=== PATIENT | male | born 1940 | race Caucasian/White ===

== ENCOUNTER 2017-04-14 13:46 | Emergency (ER) | payer MEDICARE, OTHER ==
[~2017-04-14] VITALS: Ht 185.4 cm; Wt 79.4 kg
[2017-04-14 14:04] VITALS: BP 134/87
[2017-04-14 14:50] LABS: BASOPHILS % (AUTO) 0.4 % (0.0-2.0); EOSINOPHILS # (AUTO) 0.1 /CMM (0.0-0.7); EOSINOPHILS % (AUTO) 1.1 % (0.0-6.0); HEMATOCRIT 41 % (39-51); HEMOGLOBIN 12.9 g/dL (13.5-17.5); LYMPHOCYTES # (AUTO) 2.1 /CMM (0.8-4.8); LYMPHOCYTES % (AUTO) 22.1 % (20.0-44.0); MEAN CORPUSCULAR HEMOGLOBIN 31 PG (26.0-33.0); MEAN CORPUSCULAR HGB CONC 32 g/dl (31.0-36.0); MEAN CORPUSCULAR VOLUME 97 fL (80-96); MONOCYTES % (AUTO) 10.6 % (2.0-12.0); NEUTROPHILS # (AUTO) 6.1 /CMM (1.8-8.9); NEUTROPHILS % (AUTO) 65.8 % (43.0-81.0); PLATELET COUNT (AUTO) 118 /CMM (150-450); RDW COEFFICIENT OF VARIATION 12.8 (11.5-15.0); RED BLOOD CELL COUNT(AUTO) 4.18 MIL/uL (4.5-6.0); WHITE BLOOD COUNT (AUTO) 9.3 K/uL (4.3-11.0)
[2017-04-14] MEDS ORDERED: ALBUTEROL FS 2.5 MG/3 ML VIAL.NEB ONE (14:59)
[2017-04-14] MEDS ORDERED: ALBUTEROL FS 2.5 MG/3 ML VIAL.NEB NEB ONE (15:00)
[2017-04-14 15:01] LABS: CALCIUM, SERUM 9.6 mg/dL (8.5-10.1); CARBON DIOXIDE 32 mmol/L (21-32); CHLORIDE 102 mmol/L (98-107); CREATININE 1.2 mg/dL (0.6-1.3); GLUCOSE 107 mg/dL (74-106); POTASSIUM 4.9 mmol/L (3.5-5.1); SODIUM SERUM 138 mmol/L (136-145); UREA NITROGEN, BLOOD 26 mg/dL (7-18)
[2017-04-14] MEDS ORDERED: DEXAMETHASONE SOD PHOSPHATE 10 MG/ML VIAL ONE (15:42)
[2017-04-14] MEDS ORDERED: DEXAMETHASONE SOD PHOSPHATE 10 MG/ML VIAL IV ONE (16:00)
== END 2017-04-14 15:58 | disposition home or self-care (01) ==
LOC: ER 13:48
DX: J40 Bronchitis, not specified as acute or chronic (principal); I10 Essential (primary) hypertension
CPT/HCPCS: 36415; 71010; 80048; 85025; 87804 ×2; 94640 ×2; 99285; A4606; J1100; 87400; Z7610

== ENCOUNTER 2018-05-01 22:12 | Emergency (ER) | payer MEDICARE, OTHER ==
[~2018-05-01] VITALS: Ht 180.3 cm; Wt 80.3 kg
[~2018-05-01 22:12] MED LIST: ALPR0.5T PO; APIX5TAB PO; ASPI-1169 PO; CARV6.252 PO; DARU1TAB PO; LISI10TA5 PO; MULT-659 PO; OMEG1CAP18 PO; PRAV40TA PO; RITO100T PO; TEMA15CA PO; VITA1TAB20 PO; [UNRECOGNIZED DRUG - CODE] PO
[2018-05-01] MEDS ORDERED: IV NS 0.9% 1,000 ML BAG IV ONE (23:00)
[2018-05-01] MEDS ORDERED: ONDANSETRON HCL/PF 4 MG/2 ML VIAL IVP ONE (23:00)
[2018-05-01] MEDS ORDERED: PANTOPRAZOLE 40 MG VIAL IV ONE (23:00)
--- NOTE | 2018-05-01 23:00 | NUR ---
pt bib family member, c/o nausea vomiting all day, feeling weak. pt is awake alert x 4. pt is still complaining of nausea. pt said he was recently started on eliquis for abnormal heart rhythm, pt complained of small amount of blood in vomit. pt abdomen is more distended than normal. breathing even non labored.
--- NOTE | 2018-05-01 23:15 | NUR ---
R AC 20g IV started, intact patent
[2018-05-01] MEDS ORDERED: ONDANSETRON HCL/PF 4 MG/2 ML VIAL ONE (23:25)
[2018-05-01] MEDS ORDERED: PANTOPRAZOLE 40 MG VIAL ONE (23:31)
--- NOTE | 2018-05-01 23:37 | NUR ---
pt going to ct scan now, vss awake alert x 4
[2018-05-01 23:49] LABS: BASOPHILS % (AUTO) 0.2 % (0.0-2.0); EOSINOPHILS % (AUTO) 0.7 % (0.0-6.0); HEMATOCRIT 47 % (39-51); HEMOGLOBIN 15.5 g/dL (13.5-17.5); LYMPHOCYTES # (AUTO) 0.8 /CMM (0.8-4.8); LYMPHOCYTES % (AUTO) 9.2 % (20.0-44.0); MEAN CORPUSCULAR HGB CONC 33 g/dl (31.0-36.0); MEAN CORPUSCULAR VOLUME 100 fL (80-96); MONOCYTES # (AUTO) 0.6 /CMM (0.1-1.30); MONOCYTES % (AUTO) 6.8 % (2.0-12.0); NEUTROPHILS # (AUTO) 7.7 /CMM (1.8-8.9); NEUTROPHILS % (AUTO) 83.1 % (43.0-81.0); PLATELET COUNT (AUTO) 145 /CMM (150-450); RED BLOOD CELL COUNT(AUTO) 4.68 MIL/uL (4.5-6.0); WHITE BLOOD COUNT (AUTO) 9.2 K/uL (4.3-11.0)
[2018-05-01 23:58] LABS: CALCIUM, SERUM 9.6 mg/dL (8.5-10.1); CARBON DIOXIDE 28 mmol/L (21-32); CHLORIDE 105 mmol/L (98-107); CREATININE 1.3 mg/dL (0.6-1.3); GLUCOSE 117 mg/dL (74-106); POTASSIUM 4.6 mmol/L (3.5-5.1); SODIUM SERUM 141 mmol/L (136-145); UREA NITROGEN, BLOOD 27 mg/dL (7-18)
[2018-05-02 00:04] LABS: ALANINE AMINOTRANSFERASE 34 U/L (12-78); ALBUMIN 3.8 g/dL (3.4-5.0); ALKALINE PHOSPHATASE 60 U/L (46-116); ASPARTATE AMINOTRANSFERASE 23 U/L (15-37); BILIRUBIN,DIRECT 0.1 mg/dL (0.0-0.2); BILIRUBIN,TOTAL 0.4 mg/dL (0.2-1.0); LIPASE 236 U/L (73-393); TOTAL PROTEIN, SERUM 7.8 g/dL (6.4-8.2)
[2018-05-02 01:32] VITALS: BP 120/68
== END 2018-05-02 01:35 | disposition home or self-care (01) ==
LOC: ER 22:17
DX: R11.2 Nausea with vomiting, unspecified (principal); B34.9 Viral infection, unspecified; I10 Essential (primary) hypertension; G51.0 Bell's palsy; I48.91 Unspecified atrial fibrillation; Z85.828 Personal history of other malignant neoplasm of skin; Z98.890 Other specified postprocedural states; Z88.9 Allergy status to unspecified drugs, medicaments and biological substances; Z60.2 Problems related to living alone; Z79.82 Long term (current) use of aspirin
CPT/HCPCS: 36415; 71045-TC; 80048-TC; 80076-TC; 83690-TC; 84484-TC; 85025-TC; A4606; C9113; J2405; J7030; Z7610

== ENCOUNTER 2018-11-22 17:43 | Emergency (ER) | payer MEDICARE, BC, OTHER ==
[~2018-11-22] VITALS: Ht 182.9 cm; Wt 86.2 kg
[2018-11-22 18:04] VITALS: BP 138/89
== END 2018-11-22 18:29 | disposition home or self-care (01) ==
LOC: ER 17:52
DX: I10 Essential (primary) hypertension (principal); G51.0 Bell's palsy; Z85.828 Personal history of other malignant neoplasm of skin; Z98.890 Other specified postprocedural states; Z60.2 Problems related to living alone; Z79.82 Long term (current) use of aspirin; Z88.8 Allergy status to other drugs, medicaments and biological substances

== ENCOUNTER 2018-11-23 15:45 | Emergency (ER) | payer MEDICARE, BC, OTHER ==
[~2018-11-23] VITALS: Ht 182.9 cm; Wt 85.7 kg
--- NOTE | 2018-11-23 16:00 | NUR ---
C/O HEADACHE AND DIZZINESS X 2 HOURS. SEEN YESTERDAY FOR HIGH B/P. PATIENT A/OX4, BREATHING EVEN AND UNLABORED, NO SOB NOTED, ATTACHED TO THE FRUIT HARVESTER.
[2018-11-23 16:23] LABS: BASOPHILS % (AUTO) 0.4 % (0.0-2.0); EOSINOPHILS % (AUTO) 0.8 % (0.0-6.0); HEMATOCRIT 45 % (39-51); HEMOGLOBIN 15.2 g/dL (13.5-17.5); LYMPHOCYTES # (AUTO) 3.2 /CMM (0.8-4.8); LYMPHOCYTES % (AUTO) 43.8 % (20.0-44.0); MEAN CORPUSCULAR HGB CONC 33 g/dl (31.0-36.0); MEAN CORPUSCULAR VOLUME 97 fL (80-96); MONOCYTES # (AUTO) 0.6 /CMM (0.1-1.30); MONOCYTES % (AUTO) 8.6 % (2.0-12.0); NEUTROPHILS # (AUTO) 3.4 /CMM (1.8-8.9); NEUTROPHILS % (AUTO) 46.4 % (43.0-81.0); PLATELET COUNT (AUTO) 154 /CMM (150-450); RED BLOOD CELL COUNT(AUTO) 4.69 MIL/uL (4.5-6.0); WHITE BLOOD COUNT (AUTO) 7.3 K/uL (4.3-11.0)
[2018-11-23] MEDS ORDERED: diphenhydrAMINE HCL 50 MG/ML VIAL IV ONE (16:30)
[2018-11-23] MEDS ORDERED: ONDANSETRON HCL/PF 4 MG/2 ML VIAL IVP ONE (16:30)
[2018-11-23] MEDS ORDERED: IV NS 0.9% 1,000 ML BAG IV ONE (16:30)
[2018-11-23 16:31] LABS: CALCIUM, SERUM 9.7 mg/dL (8.5-10.1); CARBON DIOXIDE 29 mmol/L (21-32); CHLORIDE 105 mmol/L (98-107); CREATININE 1.2 mg/dL (0.6-1.3); GLUCOSE 93 mg/dL (74-106); POTASSIUM 4.3 mmol/L (3.5-5.1); SODIUM SERUM 140 mmol/L (136-145); UREA NITROGEN, BLOOD 18 mg/dL (7-18)
[2018-11-23] MEDS ORDERED: diphenhydrAMINE HCL 50 MG/ML VIAL ONE (16:31)
[2018-11-23] MEDS ORDERED: ONDANSETRON HCL/PF 4 MG/2 ML VIAL ONE (16:32)
[2018-11-23 16:37] LABS: ALANINE AMINOTRANSFERASE 42 U/L (12-78); ALBUMIN 3.6 g/dL (3.4-5.0); ALKALINE PHOSPHATASE 53 U/L (46-116); ASPARTATE AMINOTRANSFERASE 29 U/L (15-37); BILIRUBIN,DIRECT 0.1 mg/dL (0.0-0.2); BILIRUBIN,TOTAL 0.4 mg/dL (0.2-1.0); TOTAL PROTEIN, SERUM 7.3 g/dL (6.4-8.2)
--- NOTE | 2018-11-23 17:39 | NUR ---
BP IMPROVED, PATIENT A/OX4, BREATHING EVEN AND UNLABORED, NO SOB NOTED, PIV REMOVED, Patient discharged to home in stable condition. Written and verbal after care instructions given. Patient verbalizes understanding of instruction.
[2018-11-23 17:41] VITALS: BP 138/95
== END 2018-11-23 17:42 | disposition home or self-care (01) ==
LOC: ER 15:50
DX: I10 Essential (primary) hypertension (principal); R42 Dizziness and giddiness; R51 Headache; R00.1 Bradycardia, unspecified; R41.82 Altered mental status, unspecified; G51.0 Bell's palsy; Z85.828 Personal history of other malignant neoplasm of skin; Z98.890 Other specified postprocedural states; Z60.2 Problems related to living alone; Z79.82 Long term (current) use of aspirin; Z88.8 Allergy status to other drugs, medicaments and biological substances
CPT/HCPCS: 36415; 70450; 71045; 80048; 80076; 82962; 84484; 85025; 93005; 96361; 96374; 96375; 99284; J1200; J2405; J7030

== ENCOUNTER 2019-02-26 22:06 | Inpatient (IN) | payer MEDICARE, BC, OTHER ==
[~2019-02-26] VITALS: Ht 182.9 cm; Wt 83.9 kg
--- NOTE | 2019-02-26 22:25 | NUR ---
BIB FRIEN C/O BILATERAL RIBCAGE SHOOTING SHARP PAIN X2 EPISODE TODAY WITH SOB AND DIZZINES, PT PAIN FREE NOW. IN BED BEING SEEN BY
[2019-02-26 22:59] LABS: BASOPHILS % (AUTO) 0.3 % (0.0-2.0); EOSINOPHILS % (AUTO) 1.7 % (0.0-6.0); HEMATOCRIT 47 % (39-51); HEMOGLOBIN 16.4 g/dL (13.5-17.5); LYMPHOCYTES # (AUTO) 2.5 /CMM (0.8-4.8); LYMPHOCYTES % (AUTO) 36.9 % (20.0-44.0); MEAN CORPUSCULAR HGB CONC 35 g/dl (31.0-36.0); MEAN CORPUSCULAR VOLUME 96 fL (80-96); MONOCYTES # (AUTO) 0.7 /CMM (0.1-1.30); NEUTROPHILS # (AUTO) 3.5 /CMM (1.8-8.9); NEUTROPHILS % (AUTO) 51.1 % (43.0-81.0); PLATELET COUNT (AUTO) 136 /CMM (150-450); WHITE BLOOD COUNT (AUTO) 6.8 K/uL (4.3-11.0)
[2019-02-26] MEDS ORDERED: IV NS 0.9% 500 ML BAG IV ONE (23:00)
[2019-02-26 23:26] LABS: CALCIUM, SERUM 9.8 mg/dL (8.5-10.1); CARBON DIOXIDE 26 mmol/L (21-32); CHLORIDE 100 mmol/L (98-107); CREATININE 1.5 mg/dL (0.6-1.3); GLUCOSE 151 mg/dL (74-106); POTASSIUM 3.8 mmol/L (3.5-5.1); SODIUM SERUM 137 mmol/L (136-145); UREA NITROGEN, BLOOD 28 mg/dL (7-18)
--- NOTE | 2019-02-26 23:31 | NUR ---
CALLED ELECTROPLATING TECHNICIAN FOR TELE BED
--- NOTE | 2019-02-26 23:32 | NUR ---
X.RAY TECH AT THE BED SIDE
--- NOTE | 2019-02-26 23:35 | NUR ---
Rogelio molina in [facility] - 02/26/19 at 2336 by [facility] ETA [id number]. AUTH # [id number]
--- NOTE | 2019-02-26 23:37 | NUR ---
BED 311-1
[2019-02-26 23:38] LABS: ALANINE AMINOTRANSFERASE 28 U/L (12-78); ALBUMIN 3.8 g/dL (3.4-5.0); ALKALINE PHOSPHATASE 57 U/L (46-116); ASPARTATE AMINOTRANSFERASE 26 U/L (15-37); B-TYPE NATRIURETIC PEPTIDE 41 PG/ML (0-125); BILIRUBIN,DIRECT 0.2 mg/dL (0.0-0.2); BILIRUBIN,TOTAL 0.4 mg/dL (0.2-1.0); TOTAL PROTEIN, SERUM 7.8 g/dL (6.4-8.2)
[2019-02-27] VITALS (8 sets, daily range): BP systolic 101–139; BP diastolic 68–81
--- NOTE | 2019-02-27 00:02 | NUR ---
REPORT GIVEN TO SERENE CAMPBELL
[2019-02-27] MEDS ORDERED: MAGNESIUM HYDROXIDE 30 ML UDC PO PRN (00:30)
[2019-02-27] MEDS ORDERED: Z GUARD REMEDY 2 OZ OINT TP PRN (00:30)
[2019-02-27] MEDS ORDERED: MAG HYDROX/AL HYDROX/SIMETH 30 ML UDC PO PRN (00:30)
[2019-02-27] MEDS ORDERED: TEMAZEPAM 7.5 MG CAPSULE PO PRN (00:30)
[2019-02-27] MEDS ORDERED: HYDROCODONE/APAP 5/325MG 1 EACH TABLET PO PRN (00:30)
[2019-02-27] MEDS ORDERED: ALPRAZOLAM 0.5 MG TABLET PO PRN (00:30)
[2019-02-27] MEDS ORDERED: ACETAMINOPHEN 325 MG TABLET PO PRN (00:30)
[2019-02-27] MEDS ORDERED: ZOLPIDEM TARTRATE 5 MG TABLET PO PRN (00:30)
[2019-02-27] MEDS ORDERED: ONDANSETRON HCL/PF 4 MG/2 ML VIAL IVP PRN (00:30)
--- NOTE | 2019-02-27 00:36 | NUR ---
PT TAEN TO CT
--- NOTE | 2019-02-27 00:46 | NUR ---
BACK FROM CT
--- NOTE | 2019-02-27 00:50 | NUR ---
FINISH PHOTOGRAPHERMEDICAL INTERPRETER NOTES Received patient from ER via [facility] [place] accompanied by 2 ER staff. Admitted to telemetry 311-1 due to syncope under the service of Dr. Moshe Lazo. Assisted to bed comfortably, unsteady gait noted. ambulates with assistance, patient claimed he is feeling dizzy. Admission routine done, belongings inventory completed by the assigned CLOTH FINISHING RANGE OPERATOR CHIEF. On tele monitor with Sinus radha noted, patient claimed no other symptoms noted. Instructed patient to report any unusualities noted, patient verbalized understanding. Patient refused skin assessment, preferred to keep on his pants while using hospital gown. Patient claimed he has no skin issues at this time. On cardiac diet, provided water at bedside. Offered available snacks, patient preferred food from the outside, provided by his friend. Kept on bed clean, dry and comfortable. Will continue to monitor.
--- NOTE | 2019-02-27 00:54 | NUR ---
TRANSPORTED TO [facility] VIA [facility]
[2019-02-27] MEDS ORDERED: ZOLPIDEM TARTRATE 10 MG TABLET PO PRN (01:00)
[2019-02-27] MEDS: IV NS 0.9% 1,000 ML IV PRN ×2 (01:00→16:09)
--- NOTE | 2019-02-27 06:17 | NUR ---
BUSINESS PERFORMANCE SPECIALIST CLOSING NOTES Patient asleep, easily awaken. On RA, no SOB/respiratory distress noted at this time. On tele monitor with Sinus Rhythm noted. All nursing needs attended, due meds given as ordered. No new complaints made. Kept on bed clean, dry and comfortable. Call light within easy reach. Endorsed to the next shift.
--- NOTE | 2019-02-27 07:30 | NUR ---
ADMINISTRATOR PESTICIDE OPENING NOTES RECEIVED PT LAYING IN BED WITH HOB ELEVATED. PT IS A/O X4, AFEBRILE. RESPIRATIONS ARE EVEN AND UNLABORED, NOT IN ANY ACUTE DISTRESS NOTED. PT DENIES ANY PAIN, SOB, N/V AT THIS TIME. IV SITE TO RAC G18 INTACT, NO INFILTRATION NOTED. IV FLUIDS RUNNING AT 75ML/HR, TOLERATING WELL. DRESSING KEPT CLEAN AND DRY. SAFETY MEASURES ARE IN PLACE. INSTRUCTED PT TO USE CALL LIGHT WHEN ASSISTANCE IS NEEDED, CALL LIGHT IS LEFT WITHIN REACH. WILL MONITOR THROUGHOUT SHIFT FOR CONTINUITY OF CARE.
--- NOTE | 2019-02-27 07:50 | NUR ---
PET CARETAKER NOTES-- PT SEEN AND EXAMINED BY DR. VELAZQUEZ.
[2019-02-27] MEDS: ASPIRIN 81 MG TAB.CHEW PO SCH (08:06)
[2019-02-27] MEDS: APIXABAN 5 MG TABLET PO SCH ×2 (08:07→16:09)
[2019-02-27 08:11] LABS: THYROID STIMULATING HORMONE 4.299 uIU/mL (0.358-3.74)
--- NOTE | 2019-02-27 10:30 | NUR ---
FIRER RETORT NOTES-- PT SEEN AND EXAMINED BY DR. HOFFMANN.
--- NOTE | 2019-02-27 16:10 | NUR ---
SPOOL HAULER NOTES-- PT'S PARTNER/FRIEND CAME IN AND BROUGHT PT'S MEDICATIONS FROM HOME AND PT TOOK ALL MEDICATIONS INCLUDING ELIQUIS WITHOUT NOTIFYING NURSE. THEREFORE, ELIQUIS SCHEDULED AT 1700 WAS NOT GIVEN D/T PT ALREADY TAKING OWN MEDICATION. DR. GOULD MADE OF AWARE AND WILL REVIEW MED REC.
--- NOTE | 2019-02-27 18:48 | NUR ---
OPERATING ROOM REGISTERED NURSE CLOSING NOTES ALL DUE MEDS GIVEN, NEEDS MET AND RENDERED. PT IS A/O X4, AFEBRILE. RESPIRATIONS ARE EVEN AND UNLABORED, NOT IN ANY ACUTE DISTRESS NOTED. PT DENIES ANY PAIN AT THIS TIME, NO C/O SOB, N/V. IV SITE TO RAC INTACT, NO INFILTRATION NOTED. DRESSING KEPT CLEAN AND DRY. SAFETY MEASURES ARE IN PLACE. REMINDED PT TO USE CALL LIGHT WHEN ASSISTANCE IS NEEDED, CALL LIGHT IS LEFT WITHIN REACH. WILL ENDORSE TO NEXT SHIFT FOR CONTINUITY OF CARE.
--- NOTE | 2019-02-27 20:00 | NUR ---
STAFFING ACCOUNT MANAGER NOTES RECEIVED PATIENT AWAKE IN BED WITH NO DISTRESS NOTED. CALL LIGHT WITHIN REACH. PERIPHERAL LINE INTACT AND PATENT. NO C/O PAIN OR DISCOMFORT. ENCOURAGED USE OF CALL LIGHT FOR ASSISTANCE AND VERBALIZED GOOD UNDERSTANDING. BED IN LOW LOCK SETTING. ROOM FREE OF CLUTTER AND BELONGINGS KEPT NEAR BEDSIDE. WILL CONTINUE TO MONITOR.
[2019-02-27] MEDS ORDERED: ATORVASTATIN 10 MG TABLET PO SCH (22:00)
[2019-02-27] MEDS ORDERED: PRAVASTATIN SODIUM 20 MG TABLET PO SCH (22:00)
[2019-02-28] VITALS: BP 127/51
[2019-02-28 04:08] VITALS: BP 127/57
[2019-02-28 05:54] VITALS: BP_SYST 135; BP_SYST 138; BP_SYST 139; BP_DIAS 76; BP_DIAS 83; BP_DIAS 84
[2019-02-28] MEDS: IV NS 0.9% 1,000 ML IV PRN (06:07)
--- NOTE | 2019-02-28 06:36 | NUR ---
BANBURY MIXER OPERATOR NOTES PATIENT AWAKE IN BED WITH NO DISTRESS NOTED. CALL LIGHT WITHIN REACH. ALL DUE MEDS GIVEN ORDERED WITH NO ASE NOTED. NO C/O PAIN OR DISCOMFORT. PERIPHERAL LINE INTACT AND PATENT. ALL BELONGINGS KEPT NEAR BEDSIDE. BED IN LOW LOCK SETTING. WILL ENDORSE TO ONCOMING SHIFT.
[2019-02-28 06:47] LABS: CALCIUM, SERUM 9.1 mg/dL (8.5-10.1); CREATININE 1.3 mg/dL (0.6-1.3); MAGNESIUM 1.8 mg/dL (1.8-2.4); PHOSPHORUS 3.3 mg/dL (2.5-4.9); POTASSIUM 4.5 mmol/L (3.5-5.1)
[2019-02-28 06:48] LABS: BASOPHILS % (AUTO) 0.5 % (0.0-2.0); HEMATOCRIT 43 % (39-51); HEMOGLOBIN 14.7 g/dL (13.5-17.5); LYMPHOCYTES # (AUTO) 3.6 /CMM (0.8-4.8); LYMPHOCYTES % (AUTO) 51.6 % (20.0-44.0); MEAN CORPUSCULAR HGB CONC 34 g/dl (31.0-36.0); MEAN CORPUSCULAR VOLUME 97 fL (80-96); MONOCYTES # (AUTO) 0.7 /CMM (0.1-1.30); MONOCYTES % (AUTO) 10.4 % (2.0-12.0); NEUTROPHILS # (AUTO) 2.4 /CMM (1.8-8.9); NEUTROPHILS % (AUTO) 35.5 % (43.0-81.0); PLATELET COUNT (AUTO) 121 /CMM (150-450); RED BLOOD CELL COUNT(AUTO) 4.47 MIL/uL (4.5-6.0); WHITE BLOOD COUNT (AUTO) 6.9 K/uL (4.3-11.0)
[2019-02-28 06:50] LABS: THYROID STIMULATING HORMONE 5.417 uIU/mL (0.358-3.74)
[2019-02-28 08:00] VITALS: BP 144/91
--- NOTE | 2019-02-28 08:00 | NUR ---
MS RN RECEIVE DON BED, AWAKE ,ALERT,ORIENTED X4, NOT IN ANY FORM OF DISTRESS, RESPIRATIONS EVEN AND UNLABORED,NO SOB NOTED, LUNGS ARE CLEAR,ABDOMEN SOFT,POSITIVE BOWEL SOUNDS, DENIES PAIN AT THIS TIME.WILL MONITOR PATIENT'S CONDITION.
--- NOTE | 2019-02-28 09:30 | NUR ---
MS CAMPBELL BREAKFAST SERVED,DUE MEDS GIVEN,TOLERATED WELL.
[2019-02-28] MEDS: ASPIRIN 81 MG TAB.CHEW PO SCH (10:25)
[2019-02-28] MEDS: APIXABAN 5 MG TABLET PO SCH (10:32)
--- NOTE | 2019-02-28 12:41 | NUR ---
MS RN PATIENT READY FOR DISCHARGE HOME, DISCHARGE INSTRUCTIONS GIVEN AND UNDERSTOOD,ALL NEEDS ATTENDED.
== END 2019-02-28 13:00 | disposition home or self-care (01) | DRG 73 ==
LOC: ER 22:12 → TELE 23:50 → MED 02-28 11:39
PROVIDERS: ADMIT Internal Medicine; ATTEND Internal Medicine
DX: G90.8 Other disorders of autonomic nervous system (principal); N17.0 Acute kidney failure with tubular necrosis; D68.59 Other primary thrombophilia; J98.11 Atelectasis; I13.10 Hypertensive heart and chronic kidney disease without heart failure, with stage 1 through stage 4 chronic kidney disease, or unspecified chronic kidney disease; N18.9 Chronic kidney disease, unspecified; K21.9 Gastro-esophageal reflux disease without esophagitis; E78.5 Hyperlipidemia, unspecified; E86.9 Volume depletion, unspecified; G51.0 Bell's palsy; Z85.828 Personal history of other malignant neoplasm of skin; Z88.8 Allergy status to other drugs, medicaments and biological substances; Z79.82 Long term (current) use of aspirin; Z79.899 Other long term (current) drug therapy; I48.0 Paroxysmal atrial fibrillation; Z87.891 Personal history of nicotine dependence; Z79.01 Long term (current) use of anticoagulants
CPT/HCPCS: 36415; 70450-TC; 71045-TC; 80048-TC; 80061-TC; 80076-TC; 83735-TC; 83880; 84100-TC; 84439-TC; 84443-TC; 84484-TC; 85025-TC; 85730-TC; 87081-TC; 93307-TC; 93880-TC; 97116-TC; 97530-TC; G0378; J7030; J7040

== ENCOUNTER 2019-04-22 21:27 | Emergency (ER) | payer MEDICARE, BC, OTHER ==
[~2019-04-22] VITALS: Ht 182.9 cm; Wt 79.4 kg
--- NOTE | 2019-04-22 21:42 | NUR ---
BIBSELF C/O WEAKNESS/DIZZINESS X1 DAY. +VERTIGO, +NAUSEA, +SOB TO ER BED 4 AWAITING MD WHITNEY
[2019-04-22 21:59] LABS: BASOPHILS % (AUTO) 0.3 % (0.0-2.0); EOSINOPHILS % (AUTO) 0.2 % (0.0-6.0); HEMATOCRIT 44 % (39-51); LYMPHOCYTES # (AUTO) 1.9 /CMM (0.8-4.8); MEAN CORPUSCULAR HGB CONC 34 g/dl (31.0-36.0); MEAN CORPUSCULAR VOLUME 96 fL (80-96); MONOCYTES # (AUTO) 0.4 /CMM (0.1-1.30); MONOCYTES % (AUTO) 4.2 % (2.0-12.0); NEUTROPHILS # (AUTO) 6.7 /CMM (1.8-8.9); NEUTROPHILS % (AUTO) 74.3 % (43.0-81.0); PLATELET COUNT (AUTO) 166 /CMM (150-450); RED BLOOD CELL COUNT(AUTO) 4.54 MIL/uL (4.5-6.0); WHITE BLOOD COUNT (AUTO) 9.1 K/uL (4.3-11.0)
[2019-04-22] MEDS ORDERED: IV NS 0.9% 1,000 ML BAG IV ONE (22:00)
[2019-04-22 22:19] LABS: ALANINE AMINOTRANSFERASE 40 U/L (12-78); ALBUMIN 3.6 g/dL (3.4-5.0); ALKALINE PHOSPHATASE 49 U/L (46-116); ASPARTATE AMINOTRANSFERASE 34 U/L (15-37); BILIRUBIN,DIRECT 0.1 mg/dL (0.0-0.2); BILIRUBIN,TOTAL 0.3 mg/dL (0.2-1.0); CALCIUM, SERUM 10.2 mg/dL (8.5-10.1); CARBON DIOXIDE 28 mmol/L (21-32); CHLORIDE 102 mmol/L (98-107); CREATININE 1.3 mg/dL (0.6-1.3); GLUCOSE 142 mg/dL (74-106); POTASSIUM 3.7 mmol/L (3.5-5.1); SODIUM SERUM 139 mmol/L (136-145); UREA NITROGEN, BLOOD 28 mg/dL (7-18)
[2019-04-22] MEDS ORDERED: LORAZEPAM INJ 2 MG/ML VIAL IV ONE (22:30)
[2019-04-22] MEDS ORDERED: LORAZEPAM INJ 2 MG/ML VIAL ONE (22:33)
--- NOTE | 2019-04-22 23:45 | NUR ---
PT ABLE TO AMBULATE, NO DIZZINESS OR NAUSEA, NO HEADACHE
--- NOTE | 2019-04-22 23:54 | NUR ---
Patient discharged to home in stable condition. Written and verbal after care instructions given. Patient verbalizes understanding of instruction.
[2019-04-22 23:55] VITALS: BP 148/97
== END 2019-04-23 | disposition home or self-care (01) ==
LOC: ER 22:07
DX: R42 Dizziness and giddiness (principal); I10 Essential (primary) hypertension; I48.91 Unspecified atrial fibrillation; G51.0 Bell's palsy; Z98.890 Other specified postprocedural states; Z88.8 Allergy status to other drugs, medicaments and biological substances; Z60.2 Problems related to living alone; Z79.899 Other long term (current) drug therapy; Z79.82 Long term (current) use of aspirin
CPT/HCPCS: 36415; 71045; 80048; 80076; 83605; 84484; 85025; 87040 ×2; 93005; 96361; 96374; 99284; J2060; J7030

== ENCOUNTER 2020-10-02 21:58 | Emergency (ER) | payer MEDICARE, BC, OTHER ==
[~2020-10-02] VITALS: Ht 177.8 cm; Wt 86.2 kg
[~2020-10-02 21:58] MED LIST changes: +LISI10TA29 PO; -LISI10TA5 PO
--- NOTE | 2020-10-02 22:20 | NUR ---
BIBFRIEND FROM HOME TO ER BED 5. AAOX4. NOT IN RESP DSITRESS. AMBULATORY. CAME IN FOR A LEFT SIDED CHEST PAIN SINCE LAST NIGH @ 2300. PER PT, PAIN HAS BEEN HAVING THE CHEST OAIN FOR THE PAST WEEK. PAIN IS 2/10 PRESSURE RADIATING TO L ARM. INTERMITENT. PT PLACED ON MONITOR. MD WAST AT THE BEDSIDE FOR EVAL. ORDERS RECEIVED, NOTED AND CARRIED OUT.
[2020-10-02 22:22] LABS: BASOPHILS % (AUTO) 0.4 % (0.0-2.0); HEMATOCRIT 46 % (39-51); HEMOGLOBIN 15.6 g/dL (13.5-17.5); LYMPHOCYTES # (AUTO) 3.6 /CMM (0.8-4.8); LYMPHOCYTES % (AUTO) 47.5 % (20.0-44.0); MEAN CORPUSCULAR HGB CONC 34 g/dl (31.0-36.0); MEAN CORPUSCULAR VOLUME 96 fL (80-96); MONOCYTES # (AUTO) 0.8 /CMM (0.1-1.30); MONOCYTES % (AUTO) 11.1 % (2.0-12.0); PLATELET COUNT (AUTO) 164 /CMM (150-450); RED BLOOD CELL COUNT(AUTO) 4.77 MIL/uL (4.5-6.0); WHITE BLOOD COUNT (AUTO) 7.5 K/uL (4.3-11.0)
[2020-10-02 22:36] LABS: CARBON DIOXIDE 29 mmol/L (21-32); CHLORIDE 101 mmol/L (98-107); CREATININE 1.6 mg/dL (0.6-1.3); GLUCOSE 115 mg/dL (74-106); SODIUM SERUM 138 mmol/L (136-145); UREA NITROGEN, BLOOD 40 mg/dL (7-18)
[2020-10-02 22:46] LABS: ALANINE AMINOTRANSFERASE 45 U/L (12-78); ALKALINE PHOSPHATASE 72 U/L (46-116); ASPARTATE AMINOTRANSFERASE 34 U/L (15-37); B-TYPE NATRIURETIC PEPTIDE 74 PG/ML (0-125); BILIRUBIN,DIRECT 0.1 mg/dL (0.0-0.2); BILIRUBIN,TOTAL 0.4 mg/dL (0.2-1.0); TOTAL PROTEIN, SERUM 7.9 g/dL (6.4-8.2)
[2020-10-02 22:53] LABS: CALCIUM, SERUM 9.6 mg/dL (8.5-10.1)
[2020-10-02 23:14] VITALS: BP 143/89
--- NOTE | 2020-10-02 23:16 | NUR ---
PER LAB COVID NEG
[2020-10-02] MEDS ORDERED: ASPIRIN 325 MG TABLET ONE (23:27)
[2020-10-02] MEDS ORDERED: ASPIRIN 325 MG TABLET PO ONE (23:30)
--- NOTE | 2020-10-02 23:38 | NUR ---
Patient does not wish to proceed with medical care recommended by Dr. Bonita Dela Cruz. Patient given information related to possible complications, up to and including , which could occur as a result of leaving the hospital at this time. Patient verbalizes understanding of risks involved due to leaving against medical advice. Patient has signed AMA form.
--- NOTE | 2020-10-02 23:39 | NUR ---
IV removed. Catheter intact and site benign. Pressure and 4x4 applied to site. No bleeding noted. Pt ambulatory with a steady gait
--- NOTE | 2020-10-02 23:39 | NUR ---
Pt does not want to sign ama form and thrwew the chart away. made aware. witnessed by gary sampson
== END 2020-10-02 23:49 | disposition left against medical advice (07) ==
LOC: ER 22:00
DX: R07.9 Chest pain, unspecified (principal); Z85.828 Personal history of other malignant neoplasm of skin; I48.91 Unspecified atrial fibrillation; Z20.822 Contact with and (suspected) exposure to COVID-19; Z79.01 Long term (current) use of anticoagulants; I10 Essential (primary) hypertension
CPT/HCPCS: 36415; 71045-TC; 80048-TC; 80076-TC; 83880; 84484-TC; 85025-TC; 85730-TC; C9803

== ENCOUNTER 2022-08-25 20:11 | Emergency (ER) | payer MEDICARE, BC, OTHER ==
[~2022-08-25] VITALS: Ht 182.9 cm; Wt 81.6 kg
[2022-08-25] MEDS ORDERED: CLINDAMYCIN 900 MG/6 ML VIAL ONE (21:27)
[2022-08-25] MEDS: CLINDAMYCIN IV RTU IN D5W 900 MG/50 ML PIGGYBACK IV ONE (21:29)
[2022-08-25 21:36] LABS: BASOPHILS % (AUTO) 0.3 % (0.0-2.0); HEMATOCRIT 43 % (39-51); HEMOGLOBIN 13.9 g/dL (13.5-17.5); LYMPHOCYTES # (AUTO) 3.3 K/uL (0.8-4.8); LYMPHOCYTES % (AUTO) 46.5 % (20.0-44.0); MEAN CORPUSCULAR HGB CONC 33 g/dl (31.0-36.0); MEAN CORPUSCULAR VOLUME 94 fL (80-96); MONOCYTES # (AUTO) 1.1 K/uL (0.1-1.30); MONOCYTES % (AUTO) 15.3 % (2.0-12.0); NEUTROPHILS # (AUTO) 2.6 K/uL (1.8-8.9); NEUTROPHILS % (AUTO) 36.9 % (43.0-81.0); PLATELET COUNT (AUTO) 137 K/uL (150-450); RED BLOOD CELL COUNT(AUTO) 4.54 MIL/uL (4.5-6.0)
[2022-08-25 21:43] LABS: CALCIUM, SERUM 9.4 mg/dL (8.5-10.1)
[2022-08-25 22:31] LABS: EOSINOPHILS % (MANUAL) 2 % (0-4); LYMPHOCYTES % (MANUAL) 44 % (16-48); MONOCYTES % (MANUAL) 10 % (0-11.0); NEUTROPHILS % (MANUAL) 44 (42-76)
[2022-08-25 23:02] VITALS: BP 142/74
== END 2022-08-25 23:03 | disposition home or self-care (01) ==
LOC: ER 20:15
DX: L03.031 Cellulitis of right toe (principal); M19.012 Primary osteoarthritis, left shoulder; I10 Essential (primary) hypertension; I48.91 Unspecified atrial fibrillation; J44.9 Chronic obstructive pulmonary disease, unspecified; Z88.8 Allergy status to other drugs, medicaments and biological substances; Z60.2 Problems related to living alone; Z79.899 Other long term (current) drug therapy
CPT/HCPCS: 99285; 96365; 93926; 71045; 73630; 73030; 85025; 80048; 36415; 85007; J3490 ×2; J7060

== ENCOUNTER 2023-02-20 14:46 | Inpatient (IN) | payer MEDICARE, BC, OTHER ==
[~2023-02-20] VITALS: Ht 182.9 cm; Wt 100.7 kg
[2023-02-20 15:29] LABS: BASOPHILS # (AUTO) 0.1 K/uL (0.0-0.2); BASOPHILS % (AUTO) 0.7 % (0.0-2.0); EOSINOPHILS # (AUTO) 0.1 K/uL (0.0-0.7); EOSINOPHILS % (AUTO) 0.5 % (0.0-6.0); HEMATOCRIT 43 % (39-51); HEMOGLOBIN 13.9 g/dL (13.5-17.5); LYMPHOCYTES # (AUTO) 3.3 K/uL (0.8-4.8); LYMPHOCYTES % (AUTO) 28.6 % (20.0-44.0); MEAN CORPUSCULAR HEMOGLOBIN 31 PG (26.0-33.0); MEAN CORPUSCULAR HGB CONC 33 g/dl (31.0-36.0); MEAN CORPUSCULAR VOLUME 95 fL (80-96); MONOCYTES # (AUTO) 2.8 K/uL (0.1-1.30); MONOCYTES % (AUTO) 24.3 % (2.0-12.0); NEUTROPHILS # (AUTO) 5.4 K/uL (1.8-8.9); NEUTROPHILS % (AUTO) 45.9 % (43.0-81.0); PLATELET COUNT (AUTO) 110 K/uL (150-450); RED BLOOD CELL COUNT(AUTO) 4.48 MIL/uL (4.5-6.0); RED CELL DISTRIBUTION WIDTH 14.9 % (11.5-15.0); WHITE BLOOD COUNT (AUTO) 11.7 K/uL (4.3-11.0)
[2023-02-20 15:40] LABS: CALCIUM, SERUM 9.7 mg/dL (8.5-10.1); CARBON DIOXIDE 26 mmol/L (21-32); CHLORIDE 101 mmol/L (98-107); CREATININE 1.1 mg/dL (0.6-1.3); GLUCOSE 115 mg/dL (74-106); POTASSIUM 4.4 mmol/L (3.5-5.1); SODIUM SERUM 135 mmol/L (136-145); UREA NITROGEN, BLOOD 17 mg/dL (7-18)
[2023-02-20 15:48] LABS: ALANINE AMINOTRANSFERASE 33 U/L (12-78); ALBUMIN 3.3 g/dL (3.4-5.0); ALKALINE PHOSPHATASE 70 U/L (46-116); ASPARTATE AMINOTRANSFERASE 23 U/L (15-37); BILIRUBIN,DIRECT 0.2 mg/dL (0.0-0.2); BILIRUBIN,TOTAL 0.6 mg/dL (0.2-1.0); LIPASE 105 U/L (73-393); TOTAL PROTEIN, SERUM 8.2 g/dL (6.4-8.2)
[2023-02-20 16:10] LABS: APPEARANCE,URINE CLEAR (CLEAR); BILIRUBIN,URINE NEGATIVE (NEGATIVE); BLOOD, URINE TRACE-INTA Ery/uL (NEGATIVE); COLOR,URINE YELLOW (YELLOW); KETONES,URINE NEGATIVE (NEGATIVE); LEUKOCYTE ESTERASE ,URINE NEGATIVE (NEGATIVE); NITRITE, URINE NEGATIVE (NEGATIVE); PROTEIN,URINE TRACE mg/dl (NEGATIVE); UGLUCOSE NEGATIVE (NEGATIVE)
[2023-02-20 16:22] LABS: ADD URINE CULTURE NO; BACTERIA,URINE None seen /HPF (None Seen); SQUAMOUS EPITHELIAL CELL,UR 0-2 /HPF (None Seen); WBC,URINE 0-2 /HPF (0-3)
[2023-02-20] MEDS ORDERED: OMEP40CA21 PO (16:49)
[2023-02-20] MEDS ORDERED: POLY17PO4 PO (16:49)
[2023-02-20] MEDS ORDERED: MONT10TA22 PO (16:49)
[2023-02-20] MEDS ORDERED: ALBU18HF2 IH (16:49)
[2023-02-20] MEDS ORDERED: MULT-1094 PO (16:49)
[2023-02-20] MEDS ORDERED: ASCO-340 PO (16:49)
[2023-02-20] MEDS ORDERED: FLUT16SP BNOSTRILS (16:49)
[2023-02-20] MEDS ORDERED: TRIA80CR12 TP (16:49)
[2023-02-20] MEDS ORDERED: BISA5TAB10 PO (16:49)
[2023-02-20] MEDS ORDERED: APIX5TAB PO (16:49)
[2023-02-20] MEDS ORDERED: METO25TA4 PO (16:49)
[2023-02-20] MEDS ORDERED: NITR0.3T SL (16:49)
[2023-02-20] MEDS ORDERED: CARB15DR EACHEYE (16:49)
[2023-02-20] MEDS ORDERED: ALBU2.5V38 HHN (16:49)
[2023-02-20] MEDS ORDERED: FLUO30CR2 TP (16:49)
[2023-02-20] MEDS ORDERED: NIFE30TA2 PO (16:49)
[2023-02-20] MEDS ORDERED: ATOR80TA PO (16:49)
[2023-02-20] MEDS ORDERED: FLUT12AE3 IH (16:49)
[2023-02-20] MEDS ORDERED: BICT1TAB PO (16:49)
[2023-02-20] MEDS ORDERED: SENN-261 PO (16:49)
[2023-02-20] MEDS ORDERED: ALPR0.5T PO (16:49)
[2023-02-20] MEDS ORDERED: RANO10003 PO (16:49)
[2023-02-20] MEDS ORDERED: ZOLP12.52 PO (16:49)
[2023-02-20 18:37] VITALS: O2SAT 92
[2023-02-20 21:30] VITALS: BP 150/95; TEMP 97.6; O2SAT 92
[2023-02-20 21:50] LABS: ANISOCYTOSIS 1+; LYMPHOCYTES % (MANUAL) 30 % (16-48); MONOCYTES % (MANUAL) 6 % (0-11.0); NEUTROPHILS % (MANUAL) 64 (42-76); PLATELET ESTIMATE DECREASED
[2023-02-20 21:51] LABS: ROULEAUX 1+
[2023-02-20] MEDS ORDERED: ZOLPIDEM TARTRATE 5 MG TABLET PO SCH (23:23)
[2023-02-20] MEDS ORDERED: NITROGLYCERIN 0.3 MG TAB.SUBL SL PRN (23:30)
[2023-02-20] MEDS ORDERED: ALPRAZOLAM 0.5 MG TABLET PO SCH (23:30)
[2023-02-20] MEDS ORDERED: SENNOSIDES 8.6 MG TABLET PO PRN (23:30)
[2023-02-20] MEDS ORDERED: ACETAMINOPHEN 325 MG TABLET PO PRN (23:30)
[2023-02-20] MEDS ORDERED: MORPHINE SULFATE INJ 2 MG/ML DISP.SYRIN IV PRN (23:30)
[2023-02-20] MEDS ORDERED: BISACODYL (5 MG) 5 MG TABLET.DR PO PRN (23:30)
[2023-02-20] MEDS ORDERED: ALBUTEROL FS 2.5 MG/3 ML VIAL.NEB NEB PRN (23:30)
[2023-02-20] MEDS ORDERED: ONDANSETRON HCL/PF 4 MG/2 ML VIAL IVP PRN (23:30)
[2023-02-20] MEDS ORDERED: PIPERACI/TAZO 3.375GM/D5W 50ML PB IV ONE (23:49)
[2023-02-21] VITALS: BP 151/96; TEMP 97.7; O2SAT 97
[2023-02-21] MEDS: ZOSYN IVPB 3.375 G in IV D5W 50ml IV SCH ×2 (00:05→05:57)
[2023-02-21] MEDS ORDERED: VANCOMYCIN 1.75 GM in IV D5W 500 ML IV ONE (01:00)
[2023-02-21] MEDS ORDERED: VANCOMYCIN 1 GM /D5W 250 ML PB IV ONE (01:01)
[2023-02-21 05:06] VITALS: BP 152/94; TEMP 97.9; O2SAT 94
[2023-02-21] MEDS ORDERED: PIPERACI/TAZO 3.375GM/D5W 50ML PB IV ONE (05:46)
[2023-02-21 06:35] LABS: BASOPHILS % (AUTO) 0.2 % (0.0-2.0); EOSINOPHILS # (AUTO) 0.1 K/uL (0.0-0.7); HEMATOCRIT 39 % (39-51); LYMPHOCYTES # (AUTO) 2.3 K/uL (0.8-4.8); LYMPHOCYTES % (AUTO) 29.6 % (20.0-44.0); MEAN CORPUSCULAR HEMOGLOBIN 32 PG (26.0-33.0); MEAN CORPUSCULAR HGB CONC 34 g/dl (31.0-36.0); MEAN CORPUSCULAR VOLUME 95 fL (80-96); MONOCYTES # (AUTO) 2.4 K/uL (0.1-1.30); MONOCYTES % (AUTO) 31.4 % (2.0-12.0); NEUTROPHILS # (AUTO) 2.9 K/uL (1.8-8.9); NEUTROPHILS % (AUTO) 37.8 % (43.0-81.0); PLATELET COUNT (AUTO) 95 K/uL (150-450); WHITE BLOOD COUNT (AUTO) 7.7 K/uL (4.3-11.0)
[2023-02-21 06:57] LABS: BILIRUBIN,TOTAL 0.8 mg/dL (0.2-1.0); CALCIUM, SERUM 9.2 mg/dL (8.5-10.1); PHOSPHORUS 3.6 mg/dL (2.5-4.9); POTASSIUM 3.7 mmol/L (3.5-5.1); TOTAL PROTEIN, SERUM 7.4 g/dL (6.4-8.2)
[2023-02-21 07:08] LABS: THYROID STIMULATING HORMONE 2.606 uIU/mL (0.358-3.74)
[2023-02-21 07:30] VITALS: BP 144/95; TEMP 98.4; O2SAT 90
[2023-02-21] MEDS ORDERED: PANTOPRAZOLE 40 MG TABLET.DR PO SCH (07:30)
[2023-02-21] MEDS ORDERED: FLUTICASONE/VILANTEROL 1 EACH BLST.W.DEV IH SCH (09:00)
[2023-02-21] MEDS ORDERED: NIFEdipine XL (30MG) 30 MG TAB PO SCH (09:00)
[2023-02-21] MEDS ORDERED: ASCORBIC ACID 500 MG TABLET PO SCH (09:00)
[2023-02-21] MEDS ORDERED: RANOLAZINE 500 MG TAB.ER.12H PO SCH (09:00)
[2023-02-21] MEDS ORDERED: METOPROLOL SUCCINATE 25 MG TAB.SR.24H PO SCH (09:00)
[2023-02-21] MEDS ORDERED: APIXABAN 5 MG TABLET PO SCH (09:00)
[2023-02-21] MEDS ORDERED: POLYETHYLENE GLYCOL 3350 17 GM POWD.PACK PO SCH (09:00)
[2023-02-21] MEDS ORDERED: MULTIVITAMINS,THERAGRAN 1 UDTAB TABLET PO SCH (09:00)
[2023-02-21] MEDS ORDERED: AMOX-430 PO (10:29)
[2023-02-21 12:00] VITALS: BP 131/98; TEMP 98.2; O2SAT 94
[2023-02-21] MEDS ORDERED: PIPERACILLIN /TAZOBACTAM 3.375 G in IV D5W 50 ML IV SCH (12:00)
[2023-02-21 12:35] LABS: ANISOCYTOSIS 1+; BASOPHILS % (MANUAL) 0 % (0.0-2.0); EOSINOPHILS % (MANUAL) 4 % (0-4); LYMPHOCYTES % (MANUAL) 21 % (16-48); MONOCYTES % (MANUAL) 24 % (0-11.0); NEUTROPHILS % (MANUAL) 51 (42-76); PLATELET ESTIMATE DECREASED
[2023-02-21] MEDS ORDERED: VANCOMYCIN 0.75 GM in IV D5W 250 ML IV SCH (13:00)
[2023-02-21] MEDS ORDERED: MONTELUKAST SODIUM (10MG) 10 MG TABLET PO SCH (18:00)
[2023-02-21] MEDS ORDERED: ATORVASTATIN 40 MG TABLET PO SCH (22:00)
== END 2023-02-21 14:35 | disposition home or self-care (01) | DRG 871 ==
LOC: ER 15:02 → TELE 20:48
PROVIDERS: ADMIT Internal Medicine; ATTEND Internal Medicine
DX: A41.9 Sepsis, unspecified organism (principal); J18.9 Pneumonia, unspecified organism; I48.20 Chronic atrial fibrillation, unspecified; I50.32 Chronic diastolic (congestive) heart failure; J44.0 Chronic obstructive pulmonary disease with (acute) lower respiratory infection; R14.0 Abdominal distension (gaseous); D69.6 Thrombocytopenia, unspecified; E66.9 Obesity, unspecified; E78.5 Hyperlipidemia, unspecified; I11.0 Hypertensive heart disease with heart failure; Z79.01 Long term (current) use of anticoagulants; Z87.891 Personal history of nicotine dependence; F41.9 Anxiety disorder, unspecified; Z85.828 Personal history of other malignant neoplasm of skin; K21.9 Gastro-esophageal reflux disease without esophagitis; Z68.30 Body mass index [BMI] 30.0-30.9, adult; S00.81XA Abrasion of other part of head, initial encounter; X58.XXXA Exposure to other specified factors, initial encounter; Y93.9 Activity, unspecified; Y92.009 Unspecified place in unspecified non-institutional (private) residence as the place of occurrence of the external cause
CPT/HCPCS: 36415; 71045-TC; 80048-TC; 80053-TC; 80061-TC; 80076-TC; 81001; 83690-TC; 83735-TC; 84100-TC; 84443-TC; 84484-TC; 85025-TC; 87086-TC; A4223; G0378; J2543; J3370; J7040; J7060